=== PATIENT | male | born 1935 | race Caucasian/White ===

== ENCOUNTER → 2017-09-20 | Outpatient (CLI) | payer MEDICARE, BC ==
[~2017-09-20] MED LIST: ASPI-1213 PO; CALC1TAB15 PO; CARB100 PO; CHOL100034 PO; EZET1TAB3 PO; FOLI400T2 PO; GLIM4TAB3 PO; HYDR25TA PO; LISI40TA4 PO; METO50TA18 PO; NIFE90TA49 PO; PIOG45TA4 PO
== END | disposition home or self-care (01) ==
LOC: RADPV 08:15
PROVIDERS: ATTEND Family Medicine
DX: M77.32 Calcaneal spur, left foot (principal); M85.872 Other specified disorders of bone density and structure, left ankle and foot; M79.89 Other specified soft tissue disorders